=== PATIENT | female | born 1995 | race Caucasian/White ===

== ENCOUNTER 2024-05-17 14:19 | Emergency (ER) | payer OTHER, SELFPAY ==
[2024-05-17 14:24] VITALS: BP 122/68
[2024-05-17 14:37] LABS: % Basophils 0.4 % (0-2); % Eosinophils 4.2 % (0-6); % Immature Granulocytes 0.2 % (0-0.5); % Lymphocytes 38.8 % (20.5-51.1); % Neutrophils 49.4 % (42.2-75.2); Absolute Eosinophils 0.2 10^3/uL (0-0.7); Absolute Lymphocytes 1.8 10^3/uL (1.2-3.4); Absolute Monocytes 0.3 10^3/uL (0.1-0.6); Absolute Neutrophils 2.3 10^3/uL (1.4-6.5); Hematocrit 37.9 % (37.0-47.0); Hemoglobin 13.3 g/dL (12.0-16.0); Mean Corp Hgb Conc. 35.1 g/dL (33.0-37.0); Mean Corpuscular Hgb 32.9 pg (27.0-31.0); Mean Corpuscular Volume 93.8 fL (81.0-99.0); Mean Platelet Volume 10.9 fL (7.4-10.4); Nucleated Red Blood Cells % 0 %; Platelet Count 256 10^3/uL (130-400); Red Blood Cell Count 4.04 10^6/uL (4.20-5.40); Red Cell Dist. Width 11.9 % (11.5-14.5); White Blood Cell Count 4.6 10^3/uL (4.8-10.8)
[2024-05-17 14:50] LABS: INR 1.06; PT 13.8 Sec (11.4-14.6)
[2024-05-17 14:57] LABS: ALT (SGPT) 17 U/L (0-35); AST (SGOT) 24 U/L (14-36); Albumin 4.5 g/dl (3.5-5.0); Alkaline Phosphatase 53 U/L (38-126); Blood Urea Nitrogen 14 mg/dl (7-17); Calcium 9.7 mg/dl (8.4-10.2); Carbon Dioxide 28 mmol/L (22-30); Chloride 105 mmol/L (98-107); Glucose 112 mg/dl (70-99); Potassium 4.6 mmol/L (3.5-5.1); Sodium 141 mmol/L (135-145); Total Bilirubin 0.6 mg/dl (0.2-1.3); eGFR > 60.00
[2024-05-17 15:02] LABS: Troponin I < 0.012 ng/ml
--- NOTE | 2024-05-17 15:26 | ED.GENMED ---
History of Present Illness
General
Chief Complaint: Chest Pain
Source: patient
Time Seen by Provider: 05/17/24 15:14
History of Present Illness
History of Present Illness:
28yoM with a history of iron deficiency anemia presenting for evaluation of chest pain. Patient reports sharp chest pain localized to 1 spot underneath her left breast. Pain started yesterday afternoon around 4 PM. Symptoms have been constant
since it began. Pain is worse with deep breathing. She did ibuprofen without improvement. She was seen at urgent care prior to arrival. She had an EKG and a chest x-ray which were reportedly normal and she was sent to the ED for evaluation.
Patient is otherwise asymptomatic and denies any cough, fever, calf swelling. No recent travel. No oral contraceptive or tobacco use. No prior history of VTE.
Past History
Social History
Tobacco: Non-smoker
Alcohol: None
Drug: None
Phy Exam
General Physical Exam
General Presentation: well appearing and no apparent distress
General age: appears stated age
General Skin: warm and dry
General Habitus: normal
General Mental: alert
Cardiovascular Exam
Cardiovascular Exam: regular rate/rhythm and no murmur
Pulmonary Exam
Pulmonary Exam: lungs clear, no respiratory distress, no rales, no crackles, no rhonchi and other (+Tenderness to L lower chest. No skin changes. )
[place] Coma Scale
Eye Opening: Spontaneous
Verbal Response: Oriented
Motor Response: Obeys Commands
GCS Total Score: 15
Skin Exam
Skin Exam: normal color and warm/dry
Psychiatric Exam
Psychiatric Exam: normal mood/affect
Scores
Heart Score for Chest Pain Patients
STEMI patient?: Not applicable
Course
Orders/Labs/Results
Orders:
Orders
05/17/24 14:20
Electrocardiogram (*1) Urgent
Reason for Study: Chest Pain
EKG- Treatment ONCE
05/17/24 14:29
Complete Blood Count/With Diff Urgent
Comprehensive Metabolic Panel Urgent
Prothrombin Time Urgent
Troponin I Urgent
05/17/24 15:26
CR Chest - 2 Views Urgent
Comment:
Reason For Exam: Pleuritic L chest pain
05/17/24 16:06
D-Dimer Urgent
Abnormal Lab Results
05/17/24
14:29
WBC 4.6 L 10^3/uL
(4.8-10.8)
RBC 4.04 L 10^6/uL
(4.20-5.40)
MCH 32.9 H pg
(27.0-31.0)
MPV 10.9 H fL
(7.4-10.4)
Glucose 112 H mg/dl
(70-99)
05/17/24 14:29
05/17/24 14:29
Vital Signs
Initial and Last Documented VS:
Initial Vital Signs
Temp Pulse Resp BP Pulse Ox
98.7 F 77 18 122/68 99
05/17/24 14:24 05/17/24 14:24 05/17/24 14:24 05/17/24 14:24 05/17/24 14:24
Last Documented Vital Signs
Temp Pulse Resp BP Pulse Ox
98.7 F 76 18 108/75 98
05/17/24 14:24 05/17/24 16:58 05/17/24 14:24 05/17/24 16:58 05/17/24 16:58
MDM/Problems Addressed
Differential Diagnosis Includes:
28yoF here with pleuritic L chest pain x 1 day. Sent here by urgent care. No known VTE risk factors. She is afebrile and hemodynamically stable. Oxygen saturation 99% on room air. She is well appearing in no distress. There is chest wall tenderness
on exam. Differential diagnosis includes but is not limited to: costochondritis, pleurisy, pneumonia, pneumothorax, PE
Initial ED plan: Check cardiac labs, D-dimer, EKG, and CXR.
*EKG
Interpreted by ED Provider?: Yes
EKG Intrepretation Date: 05/17/24
Heart Rate: 66
Rate: normal
Rhythm: sinus
[place]: normal axis
Interval: normal interval
QRS Pattern: normal QRS
Ischemia: no ischemia
*Critical Care Note
Total Time (30-74mins, 75-104mins- exclusive of procedures): Not Applicable
Update Note
Update Note:
Labs overall unremarkable. EKG shows NSR without ischemic changes and troponin WNL. D-dimer normal making PE very unlikely. CXR is clear. She is stable for discharge. Suspect musculoskeletal pain. Supportive care discussed. Advised f/u with PCP. ED
return precautions discussed. She was discharged in stable condition.
ED Attending Note
-
Portions of this chart may have been created with voice recognition software.� Occasional wrong word or��sound alike� substitutions may have occurred due to the inherent limitations of voice recognition software.
Discharge Plan
Departure
Patient Disposition: Home (Routine Discharge)
Date of Disposition: 05/17/24
Time of Disposition: 16:49
Patient with high blood pressure during this ER visit?: No
Discharge Problem:
Pleuritic chest pain
Instructions: Chest Pain PCP Follow Up
Prescriptions:
No Action
Noemi
1 tab PO DAILY
Nasonex
DAILY
tramadol-acetaminophen 1 EACH tablet
1 ea PO Q4HPRN PRN (Reason: prn for pain) Qty: 20 0RF
sulfamethoxazole-trimethoprim 1 TABLET tablet
1 tab PO BID Qty: 14 0RF
phenazopyridine 200 MG tablet
200 mg PO TID Qty: 7 0RF
Referrals:
Jono Ryan, DO [Family Provider] -
Stand Alone Forms: Return to Work
Activity Restrictions/Additional Instructions:
Apply heat to affected area. Take Tylenol and ibuprofen as needed.
Please follow-up with your family doctor. Return to the ER with any new or worsening symptoms.
Interventions
Interventions:
*Risk Screen - Suicide Last Done: 05/17/24 16:58
*General Assessment Last Done: 05/17/24 16:58
*Neglect/Abuse Screening Last Done: 05/17/24 17:00
*Nursing Disposition Last Done: 05/17/24 16:58
ED- Cardiac Assessment Last Done: 05/17/24 15:16
Discharge Date and Time
Discharge Date/Time: 05/17/24 17:00
Print Language: [place]
[2024-05-17 16:42] LABS: D-Dimer < 0.27 ug/mlFEU (0.00-0.50)
[2024-05-17 16:58] VITALS: BP 108/75
== END 2024-05-17 17:00 | disposition home or self-care (01) ==
LOC: EMR 14:19
PROVIDERS: Physician Assistant; EMERGENCY PHYSICIAN Student in an Organized Health Care Education/Training Program; FAMILY PHYSICIAN Family Medicine
DX: R07.81 Pleurodynia (principal); D50.9 Iron deficiency anemia, unspecified
CPT/HCPCS: 99283; 71046; 80053; 84484; 85025; 85379; 85610; 93005